=== PATIENT | female | born 1940 | race Native Hawaiian/Other Pacific Islander ===

== ENCOUNTER 2018-01-17 09:10 | Day surgery (SDC) | payer OTHER ==
[~2018-01-17] VITALS: Ht 30.5 cm; Wt 0.5 kg
== END 2018-01-17 11:50 | disposition home or self-care (01) ==
LOC: OR 09:10
PROC: 08RJ3JZ Replacement of Right Lens with Synthetic Substitute, Percutaneous Approach (ICD-10-PCS; principal; 2018-01-17)
DX: H25.811 Combined forms of age-related cataract, right eye (principal)
CPT/HCPCS: 66984; V2632